=== PATIENT | female | born 1980 | race Caucasian/White ===

== ENCOUNTER 2020-07-13 08:00 | Outpatient (CLI) | payer OTHER, SELFPAY ==
[2020-07-13 12:56] LABS: Hematocrit 36.2 % (37.0-47.0); Hemoglobin 12.2 g/dL (12.0-15.0); Mean Corpuscular HGB Conc 33.7 g/dl (32-36); Mean Corpuscular Volume 88.9 fl (80-100); Platelet Count Result 228 k/mm3 (150-375); Red Blood Count 4.07 M/mm3 (4.2-5.4); Red Cell Distribution Width 13.9 % (11.5-14.5); White Blood Count 9.9 K/mm3 (4.5-10.0)
[2020-07-14 08:18] LABS: Rapid Plasma Reagin Non-Reactive (NonReactive)
== END 2020-07-13 08:01 ==
LOC: ANHLAB 03-02 09:13
PROVIDERS: Visit Provider Obstetrics & Gynecology
DX: Z34.93 Encounter for supervision of normal pregnancy, unspecified, third trimester (principal); Z3A.00 Weeks of gestation of pregnancy not specified
CPT/HCPCS: 36415; 85027; 86592; 86850; 86900; 86901

== ENCOUNTER 2020-07-14 08:23 | Inpatient (IN) | payer OTHER, SELFPAY ==
--- NOTE | 2020-07-11 11:53 | PM.IMHP ---
H&P: HPI History of Present Illness Date/Time: 07/11/20 11:53 Chief complaint: Prior Narrative: Fouzia Vital is a 40 year old female 5 para [id number] whose last menstrual period was 10/09/2019, EDC is 07/15/2020, presents at term for repeat section. She has had an unremarkable course. She is admitted for repeat section. Her previous sections were reviewed general anesthetic due to her lidocaine severe allergy. Her has been uncomplicated. Review of Systems Review of Systems: All systems reviewed & are unremarkable except as noted in HPI and below PMFSH Family History Family History Father COPD (chronic obstructive pulmonary disease) Sibling Asthma Mother Thyroid cancer Social History Social History Substance use: current Gender identity (if verbalized by the patient): Female Spiritual care concerns: No Meds Home Medications and Allergies Home Medications Medication Instructions Recorded Confirmed Type bupropion HCl [Wellbutrin XL] 150 mg PO QAM 06/22/20 06/22/20 History buspirone [BuSpar] 10 mg PO BID 06/22/20 06/22/20 History docosahexaenoic acid [DHA ] 200 mg PO 06/22/20 History Allergies Allergy/AdvReac Type Severity Reaction Status Date / Time lidocaine Allergy Severe Swelling Verified 04/02/19 14:40 Exam Const: General: no acute distress Eyes: General: appearance normal, both eyes and all related structures Neck: Neck: supple and no JVD Thyroid: thyroid normal Resp: Effort & Inspection: normal respiratory effort Auscultation: clear to auscultation bilaterally Cardio: Rate: regular rate Rhythm: regular rhythm GI: Inspection: non-distended GI Palp: Yes Soft to palpation, No Tenderness to palpation present (GI) and No Guarding due to palpation present (GI) Auscultation: normal bowel sounds : External Female Exam: normal external appearance Speculum Exam - Vagina: normal appearance of the vagina Speculum Exam - Cervix: normal appearance of the cervix Bimanual exam- vagina & uterus: non-tender ( Gravid soft uterus) Skin: General skin exam: no rashes or lesions noted Extrem: General: normal to inspection and no edema Psych: Mental Status: mental status grossly normal Affect: normal affect Assessment and Plan Additional Plan impression: Term with previous section Plan: Repeat low-transverse section
[2020-07-14] VITALS (50 sets, daily range): BP systolic 115–139; BP diastolic 62–97; PULSE 60–198; RESP 14–20; TEMP 36.1–36.9; O2SAT 95–100; BMI 34.8
--- NOTE | 2020-07-14 06:31 | WPDHPUPDATE1 ---
History and Physical Update Update Date/Time: 07/14/20 06:31 History and Physical has been reviewed, including an updated exam of the patient. There are NO changes in the patient's condition. Risks, benefits, and alternatives have been discussed and questions answered. Patient agrees to proceed with procedure.
[2020-07-14] MEDS: LACTATED RINGERS 1,000 ML 125 ML IV CONT ×2 (09:04→10:38)
--- NOTE | 2020-07-14 09:24 | LDADM ---
This patient, Fouzia Vital, was admitted to Labor/Delivery/Recovery 120 on 07/14/20 at 08:23. Plans for labor, pain management and were discussed with patient. Patient/family oriented to hospital policies and general routines including ID bracelet, bed and alarms, visiting hours, pain management, procedures, bathroom and other care routines, personal items, smoking policy, room service/diet and guest tray routines, security routines, and visiting hours. Patient/Family are encouraged to report perceived risks to care and to ask questions if they do not understand what they are told or what they should do. See OBIX for further documentation.
--- NOTE | 2020-07-14 12:39 | P.PNAN_ITS ---
Anes - Initial Pre Proc Eval Procedure: Operation Date: 07/14/20 13:30 Proposed Procedures p Repeat Section - Anthony Edgar MD Date/Time: 07/14/20 12:39 Surgeon: Anthony Edgar MD Pre Op Diagnosis: Patient Data Age: 40 Gender: F Height: 1.68 m Weight: 98 kg Last Vital Signs Temp 36.2 C L 07/14/20 11:00 Pulse 77 07/14/20 10:15 BP 132/81 07/14/20 10:15 Allergies Allergy/AdvReac Type Severity Reaction Status Date / Time lidocaine Allergy Severe Swelling Verified 04/02/19 14:40 Home Medications Medication Instructions Recorded Confirmed Type bupropion HCl [Wellbutrin XL] 150 mg PO QAM 06/22/20 07/14/20 History buspirone [BuSpar] 10 mg PO BID 06/22/20 07/14/20 History docosahexaenoic acid [ DHA] 200 mg PO DAILY 06/22/20 07/14/20 History hydrocodone-acetaminophen [[place]] 1 tablet PO Q4H PRN #30 tablet 07/14/20 Rx hydrocodone-acetaminophen [[place]] 1 tablet PO Q4H PRN #30 tablet 07/14/20 Rx Patient hx anesthesia problems: none Family hx anesthesia problems: none PMFSH Family History Family History Father COPD (chronic obstructive pulmonary disease) Sibling Asthma Mother Thyroid cancer Social History Social History Smoking status: Former smoker Second hand tobacco smoke exposure: No Substance use: current Gender identity (if verbalized by the patient): Female Spiritual care concerns: No Anes - Eval Final PreProcedure Day of Procedure 07/14/20 12:39 Patient weight: obese Heart: regular rate and rhythm Lungs: clear to auscultation and normal air movement Airway: Mallampati scale class II Neurological: alert and oriented Last oral intake: >/= 8 hours ASA classification: II Emergent: no Anesthetic plan: proceed Anesthesia type and monitoring: general ETT and standard monitoring Informed Consent: The patient's anesthetic plan and its attendant risks and benefits were discussed with the patient/family/POA. Questions were solicited and answers provided to the satisfaction of the patient/family/POA.
[2020-07-14] MEDS: ceFAZolin 2 GM/D5W 50 ML 2 GM/50 ML BAG IVPB (12:57)
--- NOTE | 2020-07-14 13:38 | PM.PROC ---
Procedure Note - Detailed Date of procedure: 07/14/20 Pre-op diagnosis: Surgeon: Anthony Edgar MD Postop diagnosis: Term previous section Procedure: Repeat low-transverse section Anesthesia: General endotracheal EBL: 535cc Findings: Female 7 lb 3 oz with Apgars of 9 and 9 at 1 and 5 minutes respectively Complications: None Description of procedure the patient was prepped and draped in the normal sterile fashion placed in the supine position. Secondary to her lidocaine allergy she underwent induction of general anesthetic. A Pfannenstiel incision was made progress her layers to the fascia. The fascia was incised upward outward fashion bilaterally. The underlying muscles were sharply dissected. Parietal peritoneum L by Linette clamps number sharp dissection carried superiorly. The. This carried then inferiorly to the dome of bladder. Bladder blade of was placed bladder flap was formed bladder blade returned. Low-transverse incision made in the head delivered in the BASSAM position. Anterior posterior shoulder delivered spontaneously. Cord clamped x2 and cut and infant passed off the table given Apgars of 9 [id number] 9 [id number]. Cord blood was drawn placenta then delivered intact manually. Uterus delivered from the abdomen after moist towel. After assuring no membranes or debris remained in the uterus, the uterus was closed with continuous running 0 Vicryl from lateral edge to lateral edge followed by a 2nd imbricating running locking 0 Vicryl from lateral edge to lateral edge. Hemostasis was assured. The ovaries and tubes appeared within normal limits in the uterus returned to the abdomen. The uterine incision inspected 1 last time noted be hemostatic. Laps removed and accounted for. The fascia was closed with continuous running 0 Vicryl from lateral edge to midline bilaterally. Irrigation undertaken the subcutaneous layer. The skin closed with 4 O Monocryl and glue. All sponge, needle, instrument counts were correct. There were no immediate complications
[2020-07-14] MEDS: MORPHINE SULFATE (*CRX) 2 MG/ML INJ IV PUSH ×3 (14:06→14:59)
[2020-07-14] MEDS: OXYTOCIN 30 UNITS/NS 500 ML 30 UNITS/500 ML BAG 125 UNITS IV CONT (14:08)
[2020-07-14] MEDS: KETOROLAC 30 MG/ML VIAL (*BKC) IV PUSH (15:24)
--- NOTE | 2020-07-14 16:07 | OBPPTRN ---
Patient transferred to post room # 292 via stretcher. Support person present. Oriented to unit, room, information board, rooming in, admission packet and security measures. Patient verbalizes understanding.
[2020-07-14] MEDS: MORPHINE SULFATE PCA (*CRX) 30 MG/30 ML SYR IV CONT (16:21)
[2020-07-14] MEDS: buPROPion HCL XL (24 HR) 150 MG TABCR PO (17:52)
[2020-07-14] MEDS: busPIRone HCL 10 MG TABLET PO (17:52)
[2020-07-14] MEDS: DEXTROSE 5%/0.45% SOD CHL 1,000 ML 125 ML (17:55)
[2020-07-15 03:48] VITALS: BP 114/71; PULSE 67; RESP 16; TEMP 36.2; O2SAT 99
[2020-07-15] MEDS: HYDROcodone/acetaminophen (*CRX) 10-325 MG TABLET 1 TAB PO ×4 (04:39→16:13)
[2020-07-15] MEDS: IBUPROFEN 600 MG TABLET PO ×3 (04:39→19:29)
[2020-07-15 05:01] LABS: Basophils Percent Auto 0.2 % (0.2-1.2); Eosinophils Absolute Auto 0.1 K/mm3 (0-0.3); Eosinophils Percent Auto 0.7 % (0-4.4); Hematocrit 31.3 % (37.0-47.0); Hemoglobin 10.4 g/dL (12.0-15.0); Immature Granulocyte Absolute 0.04 K/mm3 (0.00-0.031); Immature Granulocyte Percent A 0.4 % (0-0.5); Lymphocytes Absolute Auto 1.39 K/mm3 (0.9-3.2); Lymphocytes Percent Auto 14.2 % (18.3-44.2); Mean Corpuscular HGB Conc 33.2 g/dl (32-36); Mean Corpuscular Hemoglobin 29.8 pg (26-34); Mean Corpuscular Volume 89.7 fl (80-100); Mean Platelet Volume 11.1 fl (7.4-10.4); Monocytes Absolute Auto 0.7 K/mm3 (0.1-0.6); Monocytes Percent Auto 6.9 % (2.6-8.5); Neutrophils Absolute Auto 7.6 K/mm3 (1.3-6.7); Neutrophils Percent Auto 77.6 % (45.5-73.1); Platelet Count Result 185 k/mm3 (150-375); Red Blood Count 3.49 M/mm3 (4.2-5.4); Red Cell Distribution Width 14.1 % (11.5-14.5); White Blood Count 9.8 K/mm3 (4.5-10.0)
[2020-07-15 05:33] VITALS: BP 134/79; PULSE 79; RESP 18; TEMP 36.7; O2SAT 97
[2020-07-15 07:30] VITALS: BP 137/78; PULSE 78; RESP 18; TEMP 36.7
[2020-07-15] MEDS: buPROPion HCL XL (24 HR) 150 MG TABCR PO (07:30)
[2020-07-15] MEDS: DOCUSATE SODIUM 100 MG CAPSULE PO ×2 (07:30→16:13)
[2020-07-15] MEDS: busPIRone HCL 10 MG TABLET PO ×2 (07:30→19:29)
[2020-07-15] MEDS: SIMETHICONE 80 MG TAB.CHEW PO ×2 (07:38→16:14)
[2020-07-15] MEDS: ONDANSETRON INJ 4 MG/2 ML VIAL IV PUSH (07:38)
--- NOTE | 2020-07-15 08:01 | PM.OBPNVD ---
OB - PN: Subj Subjective Date/time seen: 07/15/20 08:01 Interval history: Patient doing well this AM. she has ambulated out of bed. She is tolerating PO. She reports adequate pain control. Her bleeding is normal and she reports normal lochia. She denies fever, chills, N/V. She has not yet passed flatus. Patient comments: no complaints and pain well controlled; no flatus present OB - PN: Obj Data Labs CBC & Chem 7: 07/15/20 04:47 Labs: Laboratory Results - last 24 hr 07/15/20 04:47 WBC 9.8 RBC 3.49 L Hgb 10.4 L Hct 31.3 L MCV 89.7 MCH 29.8 MCHC 33.2 RDW 14.1 Plt Count 185 MPV 11.1 H Immature Gran % (Auto) 0.4 Neut % (Auto) 77.6 H Lymph % (Auto) 14.2 L [place] % (Auto) 6.9 Eos % (Auto) 0.7 Baso % (Auto) 0.2 Lymph # (Auto) 1.39 [place] # (Auto) 0.7 H Eos # (Auto) 0.1 Baso # (Auto) 0.0 Abs Immat Gran (auto) 0.04 H Absolute Neuts (auto) 7.6 H Absolute Nucleated RBC 0.0 Nucleated RBC % 0.0 OB - PN A/P Plan day: 1 Plan: routine care Comments: patient doing well this AM s/p jacobson, voiding spontaneously tolerating PO H/H 06/24 continue routine PP care Time Spent With Patient Time: Total time spent is greater than 50% in coordination of care (as documented) at patient's floor/unit and/or counseling patient: Time with patient: less than 15 minutes Review of Systems Constitutional: Constitutional: Reports no additional constitutional complaints Cardiovascular: Cardiovascular: Reports no additional cardiovascular complaints Respiratory: Respiratory: Reports no additional respiratory complaints Gastrointestinal: Gastrointestinal: Reports no additional gastrointestinal complaints Genitourinary: Genitourinary: Reports no additional female genitourinary complaints Exam Const: General: comfortable and no acute distress Resp: Effort & Inspection: normal respiratory effort Auscultation: clear to auscultation bilaterally Cardio: Rate: regular rate GI: GI Palp: Yes Soft to palpation and Yes Tenderness to palpation present (GI) (appropriately tender around incision ) Auscultation: normal bowel sounds Other: fundus firm and below umbilicus Incision C/D/I Urinary Catheter: Urinary Catheter: urine clear Psych: Appearance: grossly normal Mental Status: mental status grossly normal Affect: normal affect
[2020-07-15] MEDS: FAMOTIDINE 20 MG TABLET PO ×2 (09:23→19:29)
--- NOTE | 2020-07-15 15:00 | PC.NURSE ---
PT introductions made and plan of care discussed per post op c section, pain management, breast feeding, daily care activities. PT verbalized understanding of such care.
[2020-07-15] MEDS: HYDROcodone/acetaminophen (*CRX) 5-325 MG TABLET 1 TAB PO (19:28)
[2020-07-15 19:57] VITALS: BP 142/79; PULSE 84; RESP 16; TEMP 36.1; O2SAT 100
[2020-07-16] MEDS: HYDROcodone/acetaminophen (*CRX) 5-325 MG TABLET 1 TAB PO ×2 (02:49→09:59)
[2020-07-16] MEDS: IBUPROFEN 600 MG TABLET PO ×2 (02:49→10:00)
--- NOTE | 2020-07-16 07:48 | P.DS_ITS ---
DS: Admitting Diagnosis Admitting Diagnosis Admitting Diagnosis: OB - DS: Summary OB Procedures : None OB Procedures Intrapartum: OB Procedures: : None Peripartum Data Delivery Method: Section Procedures: Procedures Operation Date: 07/14/20 13:30 Actual Procedures Side Surgeon p Section nAthony Edgar MD complications: none Status at Discharge Functional status at discharge: independent ambulation Overall status at discharge: patient is progressing back to baseline Time Spent with Patient Time attestation: Total time spent providing and/or coordinating discharge services: Time spent: Less than 30 minutes Exam Const: General: comfortable and no acute distress Resp: Effort & Inspection: normal respiratory effort Auscultation: clear to auscultation bilaterally Cardio: Rate: regular rate GI: Inspection: non-distended GI Palp: Yes Soft to palpation, No Firmness to palpation present (GI), Yes Tenderness to palpation present (GI) (mild tenderness over incision ) and No Guarding due to palpation present (GI) Auscultation: normal bowel sounds Psych: Appearance: grossly normal Mental Status: mental status grossly normal Discharge Plan Discharge Attending physician on discharge: Anthony Edgar Discharging Clinician: Antohny Edgar Patient Disposition: Home, Self-Care Activity: may shower, no straining, may drive after 2 weeks and pelvic rest Diet: heart healthy Wound Care Instructions: follow printed instructions Discharge Instructions: call or return for temperature >100.4, bleeding >2 pads/hr for 2 hrs, pain not controlled with medications, signs/symptoms of mastitis Patient Instructions: (DC), Antibiotic Form Stand Alone Forms: General Discharge Information Follow-up/Referrals: Anthony Edgar MD [Physician] - Discharge Medications: New hydrocodone-acetaminophen [[place]] 5-325 mg tablet 1 tablet PO Q4H PRN (Reason: pain) Qty: 30 RF: 0 hydrocodone-acetaminophen [[place]] 5-325 mg tablet 1 tablet PO Q4H PRN (Reason: pain) Qty: 30 RF: 0 No Action buspirone [BuSpar] 10 mg Tablet 10 mg PO BID RF: 0 bupropion HCl [Wellbutrin XL] 150 mg Tablet Extended Release 24 Hr 150 mg PO QAM RF: 0 DHA 200 mg Capsule 200 mg PO DAILY RF: 0 Date of admission: 07/14/20 08:23 Primary Care Provider: PHYSICIAN,HAND CEMENTER Admitting Provider: Anthony Edgar Attending physician on admission: Anthony Edgar Condition: Stable
--- NOTE | 2020-07-16 09:57 | WPDANESPN ---
Anes - Prog Note Post-Op Date/Time: 07/16/20 09:57 Cardiovascular status: normal Respiratory status: normal Airway patency: baseline Mental status: baseline Post-Op hydration status: normal Vital Signs: Last Vital Signs Temp 36.1 C L 07/15/20 19:57 Pulse 84 07/15/20 19:57 Resp 16 07/15/20 19:57 BP 142/79 H 07/15/20 19:57 Pulse Ox 100 07/15/20 19:57 Pain Score (VAS): 0 Laboratory Tests 07/15/20 04:47 Post-procedural complaints: pruritis (mild, itchy nose) Patient Feedback: Patient satisfied with anesthetic care.
[2020-07-16] MEDS: SIMETHICONE 80 MG TAB.CHEW PO (09:58)
[2020-07-16] MEDS: buPROPion HCL XL (24 HR) 150 MG TABCR PO (09:59)
[2020-07-16] MEDS: DOCUSATE SODIUM 100 MG CAPSULE PO (09:59)
[2020-07-16] MEDS: busPIRone HCL 10 MG TABLET PO (09:59)
[2020-07-16] MEDS: MULTIVIT/MIN/PREN/FOL AC/IRON TABLET 1 TAB PO (09:59)
[2020-07-16] MEDS: POLYSACCHARIDE IRON COMPLEX 150 MG CAPSULE PO (09:59)
[2020-07-16] MEDS: FAMOTIDINE 20 MG TABLET PO (09:59)
[2020-07-16 10:00] VITALS: BP 110/79; PULSE 93; RESP 18; TEMP 36.8; O2SAT 99
--- NOTE | 2020-07-16 11:55 | PC.NURSE ---
PT discharged to home ambulatory accompanied by spouse and and taken to waiting car. follow up appts confirmed
--- NOTE | 2020-07-16 13:34 | PC.NURSE ---
Addendum entered by Martir Servin RN 07/16/20 13:35: actual time of discharge teaching was 1100 Original Note: PT received discharge instructions per protocol and verbalized understanding of such care.
[2020-07-19 11:19] VITALS: BP 151/82; RESP 16; TEMP 37.3; O2SAT 99
== END 2020-07-16 11:55 | disposition home or self-care (01) | DRG 540 ==
LOC: ANHLDR 08:33 → ANHOB2 07-16 07:49 → ANHLDR 07-18 10:23 → ANHOB2 07-18 10:23
PROVIDERS: Admitting Provider Obstetrics & Gynecology; Visit Provider Student in an Organized Health Care Education/Training Program
PROC: 10D00Z1 Extraction of Products of Conception, Low, Open Approach (ICD-10-PCS; CPT 59514; principal; 2020-07-14 13:30)
DX: O34.211 Maternal care for low transverse scar from previous cesarean delivery (principal); Z37.0 Single live birth; Z3A.39 39 weeks gestation of pregnancy; O99.214 Obesity complicating childbirth; E66.9 Obesity, unspecified; O99.893 Other specified diseases and conditions complicating puerperium; L29.9 Pruritus, unspecified; O77.0 Labor and delivery complicated by meconium in amniotic fluid
CPT/HCPCS: 36415; 85025; A9270; J0131; J0330; J0690; J1885; J2270; J2405; J2590; J2704; J3010; J7120

== ENCOUNTER 2021-03-19 19:20 | Emergency (ER) | payer OTHER, SELFPAY ==
[2021-03-19 20:41] VITALS: BP 134/70; PULSE 86; RESP 14; TEMP 37; O2SAT 100
[2021-03-19 21:09] LABS: Basophils Percent Auto 0.4 % (0.2-1.2); Eosinophils Absolute Auto 0.2 K/mm3 (0-0.3); Eosinophils Percent Auto 2.2 % (0-4.4); Hematocrit 34.2 % (37.0-47.0); Hemoglobin 11.4 g/dL (12.0-15.0); Immature Granulocyte Absolute 0.04 K/mm3 (0.00-0.031); Immature Granulocyte Percent A 0.4 % (0-0.5); Lymphocytes Percent Auto 20.3 % (18.3-44.2); Mean Corpuscular HGB Conc 33.3 g/dl (32-36); Mean Corpuscular Hemoglobin 28.5 pg (26-34); Mean Corpuscular Volume 85.5 fl (80-100); Mean Platelet Volume 10.8 fl (7.4-10.4); Monocytes Absolute Auto 0.5 K/mm3 (0.1-0.6); Monocytes Percent Auto 5.2 % (2.6-8.5); Neutrophils Percent Auto 71.5 % (45.5-73.1); Platelet Count Result 198 k/mm3 (150-375); Red Cell Distribution Width 13.9 % (11.5-14.5); White Blood Count 9.8 K/mm3 (4.5-10.0)
[2021-03-19 21:18] LABS: Anion Gap 10 mmol/L (8-16); Blood Urea Nitrogen 10 mg/dL (7-17); Calcium 9.2 mg/dL (8.4-10.2); Carbon Dioxide 23 mmol/L (22-30); Chloride 106 mmol/L (98-107); Estimated CRCL calculation 150 ml/min; Estimated Glomerular Filt Rate > 60; Glucose 104 mg/dL (65-110); Potassium 3.7 mmol/L (3.4-5.0); Sodium 139 mmol/L (137-145)
[2021-03-19 21:24] LABS: D Dimer 3.18 ug/mL (<0.48)
--- NOTE | 2021-03-19 21:43 | ED.EXTPRO ---
HPI - Extremity Problem General Chief complaint: Extremity Problem,Nontraumatic Stated complaint: L calf cramp x 3 days Time Seen by Provider: 03/19/21 21:43 Source: patient Mode of arrival: ambulatory Limitations: no limitations History of Present Illness HPI Narrative: Patient is a 41-year-old female, G6, P5, currently 11 weeks who presents for evaluation of left calf pain. Patient states she noticed onset of calf pain 3 days ago. Pain is sharp in nature in the upper left calf which extends into the lower calf. Patient states that first he attributed this to a charley horse. No associated redness or swelling. No recent car or air travel. No history of Covid. No known history of coagulopathy. Patient states other pregnancies have been uncomplicated. She denies abdominal pain, pelvic cramping, urinary symptoms, loss of fluids or bleeding. No fever, chills, chest pain or shortness of breath. Patient's CREDIT ASSISTANT is Dr. Augusto Carballo. Patient is a former smoker. Related Data Home Medications Medication Instructions Recorded Confirmed DHA 200 mg PO DAILY 06/22/20 07/14/20 bupropion HCl [Wellbutrin XL] 150 mg PO QAM 06/22/20 07/14/20 buspirone 10 mg PO BID 06/22/20 07/14/20 Allergies Allergy/AdvReac Type Severity Reaction Status Date / Time lidocaine Allergy Severe Swelling Verified 04/02/19 14:40 Review of Systems Review of Systems: Narrative: CONSTITUTIONAL: Denies fever, chills, or sweats. CARDIOVASCULAR: Denies chest pain, palpitations, or edema. RESPIRATORY: Denies cough or dyspnea. GASTROINTESTINAL: Denies abdominal pain, nausea, vomiting, or diarrhea. GENITOURINARY: Denies dysuria or hematuria. No vaginal bleeding or discharge. No pelvic cramping. SKIN: Denies rash or itching. MUSCULOSKELETAL: Denies back pain, joint pain,, reports left calf pain NEUROLOGIC: Denies headache, numbness, or weakness. [facility] Family History Family History Father COPD (chronic obstructive pulmonary disease) Sibling Asthma Mother Thyroid cancer Social History Social History Smoking status: Former smoker Second hand tobacco smoke exposure: No Substance use: current Gender identity (if verbalized by the patient): Female Spiritual care concerns: No Exam Narrative: Exam Narrative: GENERAL: Awake, alert, conversant HEAD: Normocephalic, atraumatic. EYES: PERRLA and EOMI. ENT: Nares clear, no rhinorrhea or epistaxis. Mucous membranes moist. NECK: Supple. CHEST: No respiratory distress, breathing even and non labored HEART: Regular rate, sinus rhythm ABDOMEN:Non distended, non tender EXTREMITIES: Normal range of motion. No significant edema. No erythema. Left calf tenderness with palpation. No right calf tenderness. No streaking erythema. SKIN: Warm, dry, no rash. NEURO:No focal deficits. Alert and oriented x3 Course Vital Signs Vital signs: Vital Signs Temperature 37.0 C 03/19/21 20:41 Pulse Rate 86 03/19/21 20:41 Respiratory Rate 14 03/19/21 20:41 Blood Pressure 134/70 03/19/21 20:41 Pulse Oximetry 100 03/19/21 20:41 Temperature 37.0 C 03/19/21 20:41 Pulse Rate 86 03/19/21 20:41 Respiratory Rate 14 03/19/21 20:41 Blood Pressure 134/70 03/19/21 20:41 Pulse Oximetry 100 03/19/21 20:41 MDM - Extremity (Nontraumatic) MDM Narrative Medical decision making narrative: Patient presenting for evaluation of left calf pain in early . Differential includes muscle cramp versus DVT. D-dimer is elevated which can be normal in the setting of , but due to risk factors, will give a prophylactic dose of Lovenox, will obtain DVT ultrasound first thing tomorrow morning. Patient is not having any type symptoms of vaginal bleeding, loss of fluids, cramping. No urinary symptoms. No sign of injury, no known trauma to warrant x-ray imagin
[2021-03-19] MEDS: ENOXAPARIN 100 MG/ML SYRINGE SUB-Q (22:19)
== END 2021-03-19 22:24 | disposition home or self-care (01) ==
PROVIDERS: Emergency Medicine; Emergency Provider Emergency Medicine; PCP Family Medicine
DX: O26.892 Other specified pregnancy related conditions, second trimester (principal); M79.662 Pain in left lower leg; R79.1 Abnormal coagulation profile; Z87.891 Personal history of nicotine dependence; Z3A.11 11 weeks gestation of pregnancy
CPT/HCPCS: 36415; 80048; 85025; 85380; 96372; 99283; J1650

== ENCOUNTER 2021-03-20 07:11 | Outpatient (CLI) | payer OTHER, SELFPAY ==
--- NOTE | ~2021-03-20 | US_ITS ---
EXAMINATION: US venous doppler LE LT EXAM DATE: 03/20/2021 07:49 INDICATION: LT calf pain LT CALF PAIN TECHNIQUE: Multiple grayscale, color flow and Doppler images of the left lower extremity deep venous system obtained and reviewed. There is no prior study for comparison. FINDINGS: LEFT SIDE Common femoral: -------- Normal. Profunda femoral: ------- Normal. Femoral: Normal. Popliteal: Thrombosed. Posterior tibial: ---------Thrombosed. Peroneal: Thrombosed. Gastrocnemius: Not visualized. Soleus: Thrombosed. Greater saphenous: ----- Normal. Lesser saphenous: ------ Not visualized. IMPRESSION: 1. Positive for left popliteal and calf DVT. Reviewed, dictated and finalized at location B.
== END 2021-03-20 07:12 | disposition home or self-care (01) ==
PROVIDERS: PCP Obstetrics & Gynecology; Visit Provider Obstetrics & Gynecology
DX: I82.432 Acute embolism and thrombosis of left popliteal vein (principal)
CPT/HCPCS: 93971

== ENCOUNTER 2021-08-22 09:19 | Outpatient (CLI) | payer OTHER, SELFPAY ==
[2021-08-22] MEDS: TETANUS,DIPHTHERIA,AC PERTUSSIS ADULT (0.5 ML) BOOSTRIX IM (10:48)
== END 2021-08-22 09:20 | disposition home or self-care (01) ==
PROVIDERS: PCP Obstetrics & Gynecology; Visit Provider Obstetrics & Gynecology
DX: Z23 Encounter for immunization (principal); Z34.80 Encounter for supervision of other normal pregnancy, unspecified trimester
CPT/HCPCS: 59025; 90715

== ENCOUNTER 2021-10-03 09:32 | Outpatient (RCR) | payer OTHER, SELFPAY ==
[2021-08-22 11:11] VITALS: BP 124/87; PULSE 80
[2021-08-29 14:29] VITALS: BP 127/74; PULSE 94
[2021-09-05 10:51] VITALS: BP 126/66; PULSE 84
[2021-09-12 14:35] VITALS: BP 132/74
[2021-09-19 11:03] VITALS: BP 126/82; PULSE 95
[2021-09-19 11:17] VITALS: BP 139/79
--- NOTE | ~2021-10-03 | US_ITS ---
EXAMINATION: US OB follow up w BPP DATE: 09/19/2021 10:39 INDICATION: Small for gestational age. TECHNIQUE: Real-time pelvic ultrasound was performed. COMPARISON: None. FINDINGS: There is a single living fetus in vertex presentation. The placenta is posterior. heart rate i s 132 beats per minute (bpm). The amniotic fluid index is 7.6 cm, which is normal. The following biometric data were obtained: Biparietal diameter (BPD): 8.9 cm; head circumference (HC): 32.4 cm; abdominal circumference (AC): 33 .0 cm; femur length (FL): 6.9 cm. These measurements are concordant. Estimated weight is 2918 g +/- 438 g, which correlates with the 39th percentile when 10/10/21 is used as estimated date of delivery. As single measurements, these parameters are each equal to the following estimated gestational ages w ith ranges of +/- 2 standard deviations: BPD: 35 weeks 5 days (32 weeks 5 days - 38 weeks 6 days). HC: 36 weeks 4 days (33 weeks 6 days - 39 weeks 2 days). AC: 37 weeks 0 days (33 weeks 6 days - 40 weeks 0 days). FL: 35 weeks 2 days (32 weeks 2 days - 38 weeks 2 days). estimated gestational age based solely on measurements from this exam is 36 weeks 1 days +/- 2 weeks 4 days. Biophysical profile performed by the technologist: breathing (30 sec sustained breathing in 30 minutes): 2 out of 2 movement (3 gross body movements in 30 minutes): 2 out of 2 tone (one episode of [id number]-[id number]-[id number] limb movement): 2 out of 2 Amniotic fluid pocket (2 cm): 2 out of 2 Total score: 8 out of 8 IMPRESSION: 1. Single living fetus in vertex presentation. 2. Estimated weight is 2918 g +/- 438 g, which correlates with the 39th percentile when 2 is used as estimated date of delivery. 3. Biophysical profile 8 out of 8. Reviewed, dictated and finalized at location A. [employer]ANG[employer]AGE [employer] IMPRESSION: 1. Single living fetus in vertex presentation. 2. Estimated weight is 2918 g +/- 438 g, which correlates with the 39th percentile when 10/10/21 is used as estimated date of delivery. 3. Biophysical profile 8 out of 8.
[2021-10-03 10:08] VITALS: BP 119/66; PULSE 86
== END 2021-11-20 23:59 | disposition home or self-care (01) ==
LOC: ANHOBOP 09:32
PROVIDERS: PCP Obstetrics & Gynecology; Visit Provider Obstetrics & Gynecology
DX: O36.5930 Maternal care for other known or suspected poor fetal growth, third trimester, not applicable or unspecified (principal); Z3A.33 33 weeks gestation of pregnancy; Z3A.34 34 weeks gestation of pregnancy; Z3A.35 35 weeks gestation of pregnancy; Z3A.36 36 weeks gestation of pregnancy; Z3A.37 37 weeks gestation of pregnancy; Z3A.39 39 weeks gestation of pregnancy
CPT/HCPCS: 59025; 76816; 76819; J2250; J3010

== ENCOUNTER 2021-10-08 10:36 | Outpatient (CLI) | payer OTHER, SELFPAY ==
[2021-10-08 11:25] LABS: Hematocrit 33.8 % (37.0-47.0); Hemoglobin 11.4 g/dL (12.0-15.0); Mean Corpuscular HGB Conc 33.7 g/dl (32-36); Mean Corpuscular Hemoglobin 30.2 pg (26-34); Mean Corpuscular Volume 89.4 fl (80-100); Mean Platelet Volume 10.2 fl (7.4-10.4); Platelet Count Result 223 k/mm3 (150-375); Red Blood Count 3.78 M/mm3 (4.2-5.4); Red Cell Distribution Width 14.7 % (11.5-14.5); White Blood Count 8.8 K/mm3 (4.5-10.0)
[2021-10-10 05:56] LABS: Rapid Plasma Reagin Non-Reactive (NonReactive)
== END 2021-10-08 10:37 | disposition home or self-care (01) ==
PROVIDERS: PCP Family Medicine; Visit Provider Obstetrics & Gynecology
DX: Z01.818 Encounter for other preprocedural examination (principal)
CPT/HCPCS: 36415; 85027; 86592; 86850; 86900; 86901

== ENCOUNTER 2021-10-09 05:49 | Inpatient (IN) | payer OTHER, SELFPAY ==
--- NOTE | 2021-09-12 14:43 | PC.NURSE ---
verified with OR schedule and patient --C/S with tubal ligation on 10/09/21 at 0730 Patient given requisition for lab draw on 10/08/21
--- NOTE | 2021-10-08 15:18 | PM.IMHP ---
H&P: HPI History of Present Illness Date/Time: 10/08/21 15:18 41-year-old 6 para 5 for repeat section tubal ligation term. Last menstrual period of 512, EDC is 10/10 21 presenting at 3967 weeks gestation. She had an acute DVT in February been Lovenox. She stopped that 2 weeks ago and went to heparin. Stop the heparin within 24hours prior to admission. The has been complicated by an abnormal NIPT and she was referred to Maternal Medicine with reports of normal chromosomes on amniocentesis. The baby is small but testing has been reassuring. She understands this to be a permanent irreversible procedure is far as the tubal goes Chief Complaint: Repeat section and tubal ligation Review of Systems Review of Systems: All systems reviewed & are unremarkable except as noted in HPI and below PMFSH Family History Family History Father COPD (chronic obstructive pulmonary disease) Sibling Asthma Mother Thyroid cancer Grandparent Heart disease Cancer Prostate carcinoma Borderline diabetes Social History Social History Smoking status: Former smoker Second hand tobacco smoke exposure: No Substance use: never Gender identity (if verbalized by the patient): Female Spiritual care concerns: No Meds Home Medications and Allergies Home Medications Medication Instructions Recorded Confirmed Type DHA 200 mg PO DAILY 06/22/20 07/14/20 History bupropion HCl [Wellbutrin XL] 150 mg PO QAM 06/22/20 07/14/20 History buspirone 10 mg PO BID 06/22/20 07/14/20 History enoxaparin [Lovenox] 100 mg SUBCUT DAILY 09/12/21 09/12/21 History Allergies Allergy/AdvReac Type Severity Reaction Status Date / Time lidocaine Allergy Severe Swelling Verified 04/02/19 14:40 Exam Const: General: no acute distress Eyes: General: appearance normal, both eyes and all related structures Neck: Neck: supple and no JVD Thyroid: thyroid normal Resp: Effort & Inspection: normal respiratory effort Auscultation: clear to auscultation bilaterally Cardio: Rate: regular rate Rhythm: regular rhythm GI: Inspection: non-distended GI Palp: Yes Soft to palpation, No Tenderness to palpation present (GI) and No Guarding due to palpation present (GI) Auscultation: normal bowel sounds : External Female Exam: normal external appearance Speculum Exam - Vagina: normal appearance of the vagina Speculum Exam - Cervix: normal appearance of the cervix Bimanual exam- vagina & uterus: enlarged (Uterus is gravid and soft) Skin: General skin exam: no rashes or lesions noted Extrem: General: normal to inspection and no edema Psych: Mental Status: mental status grossly normal Affect: normal affect Assessment and Plan Additional Plan Impression: Term with previous section and desires permanent sterilization. History of DVT. Plan: Repeat low-transverse section and tubal ligation. She required Lovenox for 6 weeks
[2021-10-09] VITALS (46 sets, daily range): BP systolic 104–139; BP diastolic 53–91; PULSE 52–85; RESP 11–18; TEMP 36.3–36.9; O2SAT 98–100; BMI 33.0
[2021-10-09] MEDS: LACTATED RINGERS 1,000 ML 125 ML IV CONT (06:18)
--- NOTE | 2021-10-09 06:20 | LDADM ---
This patient, Fouzia Vital, was admitted to Labor/Delivery/Recovery 120 on 10/09/21 at 05:49. Plans for labor, pain management and were discussed with patient. Patient/family oriented to hospital policies and general routines including ID bracelet, bed and alarms, visiting hours, pain management, procedures, bathroom and other care routines, personal items, smoking policy, room service/diet and guest tray routines, security routines, and visiting hours. Patient/Family are encouraged to report perceived risks to care and to ask questions if they do not understand what they are told or what they should do. See OBIX for further documentation.
--- NOTE | 2021-10-09 06:43 | P.PNAN_ITS ---
Anes - Initial Pre Proc Eval Procedure: Operation Date: 10/09/21 07:30 Proposed Procedures p Repeat Section with Tubal Ligation - Anthony Edgar MD Date/Time: 10/09/21 06:43 Surgeon: Anthony Edgar MD Pre Op Diagnosis: Repeat C/S Patient Data Age: 41 Gender: F Height: 1.68 m Weight: 93 kg Last Vital Signs Pulse 84 10/09/21 06:32 BP 130/77 10/09/21 06:32 Allergies Allergy/AdvReac Type Severity Reaction Status Date / Time lidocaine Allergy Severe Swelling Verified 04/02/19 14:40 Home Medications Medication Instructions Recorded Confirmed Type DHA 200 mg PO DAILY 06/22/20 10/09/21 History bupropion HCl [Wellbutrin XL] 150 mg PO QAM 06/22/20 10/09/21 History buspirone 10 mg PO BID 06/22/20 10/09/21 History Patient hx anesthesia problems: none Family hx anesthesia problems: none Results Review: All pre-operative results and documents have been reviewed as part of the pre-operative evaluation. [facility] Past Medical History Medical History (Updated 10/09/21 @ 06:45 by Anthony Garcia MD) Adjustment disorder Anxiety Claustrophobia DVT (deep venous thrombosis) Surgical History Surgical History (Updated 10/09/21 @ 06:45 by Anthony Garcia MD) H/O adenoidectomy History of section Family History Family History Father COPD (chronic obstructive pulmonary disease) Sibling Asthma Mother Thyroid cancer Grandparent Heart disease Cancer Prostate carcinoma Borderline diabetes Social History Social History Years smoked: 20 Smoking status: Former smoker Tobacco type: cigarettes Second hand tobacco smoke exposure: No Smoking end date: 04/09/18 Substance use: never Gender identity (if verbalized by the patient): Female Spiritual care concerns: No Anes - Eval Final PreProcedure Day of Procedure 10/09/21 06:43 Patient weight: obese Heart: regular rate and rhythm Lungs: clear to auscultation Airway: Mallampati scale class II and special considerations poor dentition Last oral intake: >/= 8 hours ASA classification: III Emergent: no Anesthetic plan: proceed Anesthesia type and monitoring: general ETT and standard monitoring Results Review: All pre-operative results and documents have been reviewed as part of the pre-operative evaluation. Informed Consent: The patient's anesthetic plan and its attendant risks and benefits were discussed with the patient/family/POA. Questions were solicited and answers provided to the satisfaction of the patient/family/POA.
--- NOTE | 2021-10-09 07:08 | WPDHPUPDATE1 ---
History and Physical Update Update Date/Time: 10/09/21 07:08 History and Physical has been reviewed, including an updated exam of the patient. There are NO changes in the patient's condition. Risks, benefits, and alternatives have been discussed and questions answered. Patient agrees to proceed with procedure.
[2021-10-09] MEDS: ceFAZolin 2 GM/D5W 50 ML 2 GM/50 ML BAG IVPB (07:30)
--- NOTE | 2021-10-09 08:13 | W.PM.PROC2 ---
Procedure Note - Detailed Date of Procedure 10/09/21 Pre-op Diagnosis Repeat C/S/desires sterilization Post-op Diagnosis same Procedure Performed Repeat low-transverse section and bilateral tubal ligation via modified Rajwinder method Surgeon Anthony Edgar MD Anesthesia general Indications This is a 41-year-old female at term who desires permanent sterilization with several previous C-sections Findings Female 6lb 7oz with Apgars 8 and 9 at 1 and 5minutes respectively Description of Procedure The patient is prepped draped in normal fashion placed in supine position. Under excellent spinal general anesthetic the abdomen was entered in Pfannenstiel fashion progressive layers to fascia was incised in upward outward fashion removed laterally the parietal peritoneum elevated clamped and by sharp dissection carried superiorly and inferiorly dome of bladder. Bladder blade placed bladder flap formed bladder blade returned low-transverse incision made the head delivered in the BASSAM position anterior posterior shoulder delivered spontaneously after repeat number leaving a loose nuchal cord infant passed off the table given Apgars of 8 [id number] cord blood was drawn placenta intact manually uterus delivered on the abdomen wrapped in moist towel. After assuring no membranes or debris remained in the uterus, the uterus was closed with continuous running locking 0 Vicryl from lateral edge to lateral edge followed by 2nd imbricating running locking 0 Vicryl from lateral edge to lateral edge. Hemostasis was assured attention turned to the tubal ligation. The right fallopian tube was grasped at its midportion a good knuckle of tube free tied with 0 chromic the distal and proximal portions were then free tied with 0 chromic in the portion between incised with Metzenbaum scissors and passed off the table marked portion right fallopian tube. Hemostasis was assured in like fashion the left fallopian tube was grasped in its midportion a good knuckle of tube free tied with 0 chromic the the peritoneum between pierced and the distal and proximal legs were free tied with 0 chromic the portion between cut passed off the table and marked portion of left fallopian tube. Hemostasis was assured. The uterine incision inspected 1 last time noted be hemostatic. The uterus returned the abdomen and all laps removed and accounted for. The fascia closed with continuous running 0 Vicryl from lateral edge to midline bilaterally. Irrigation subcutaneous layer and the skin closed with 4 Monocryl and glue blood loss was 400cc by QBL. All sponge, needle, instrument counts were correct. There were no immediate complications Estimated Blood Loss 400 Drains No Packing No Pathology yes (Bilateral portion of fallopian tubes) Complications No immediate complications Condition stable Disposition PACU
[2021-10-09] MEDS: OXYTOCIN 30 UNITS/NS 500 ML 30 UNITS/500 ML BAG 125 UNITS IV CONT (08:33)
[2021-10-09] MEDS: fentaNYL CITRATE INJ (*CRX) 100 MCG/2 ML VIAL 25 MCG IV PUSH ×2 (08:37→09:13)
[2021-10-09] MEDS: MORPHINE SULFATE PCA (*CRX) 30 MG/30 ML SYR IV CONT (09:35)
--- NOTE | 2021-10-09 10:50 | PC.NURSE ---
Patient transferred to post room #[id number] per stretcher. Support person present. Oriented to unit, room, information board, rooming in, admission packet and security measures. Patient verbalizes understanding.
[2021-10-09] MEDS: DEXTROSE 5%/0.45% SOD CHL 1,000 ML 125 ML IV CONT (12:54)
--- NOTE | 2021-10-09 13:23 | PC.NURSE ---
1200 - Introductions were made and mother led the discussion of her desires and plans to feeding her baby. Reviewed my CLC pending certification at this time. Reviewed handwashing to prevent infection before and after taking care of her baby. Mother verbalizes she is able to independently latch . Discussed how to watch for early feeding cues, place infant skin to skin, then feeding baby when infant is ready or every 2-3 hours. Mother demonstrated her . Reviewed positioning/alignment with the use of the mom and baby guide for optimal latching. Encouraged mother with infant left breast in cross cradle position using nipple to nose with asymmetrical 140-degree latch. She denies any nipple discomfort. Reviewed there is to be no pain with , how to detach from the breast, visuals to watch for to confirm effective . Detached after visual assessment of latch less than 130 degrees and break in the cheek line. Nipple was slightly misshaped and reviewed optimal latching with mother using visual teaching tool and handout. Nipple tenderness is relieved with improving positioning and effective latching. Use of warm, wet compress to nipples and air dry for improved comfort. Infant was able to maintain effective latch. Mother has verbalized understanding watching for feeding cues for responsive feeding 8-12 times in 24 hours, how to stimulate infant to initiate feeding if it has been 3 hours since the last feeding, to call for assistance if there's no latch or discomfort with latching. Reported to primary RN.
--- NOTE | 2021-10-09 14:28 | PC.NURSE ---
1410 - 1425 Consulted with patient and mother has latched effectively with no pain but is insecure with regards to position and latch to the right breast using cradle hold. Detached infant and assessed the nipple and there was no misshape. Reviewed positioning/alignment, holding breast and asymmetrical latch on. was able to latch correctly with appropriate rocking motion with good suck/swallow ratios. Infant nursed eagerly, with steady draws and occasional swallowing. Reviewed signs of a correct latch, effective nursing and suck swallow ratio. was able to maintain latch without discomfort to mother. Nipple care reviewed. Instructed mother to call out for RN assistance if she is unable to latch for feeding or she has discomfort with nursing. Reviewed responsive feeding to be initiated with feeding cues or three hours from start of last feeding. Mother voiced understanding of information shared. Reported to primary RN.
[2021-10-09] MEDS: KETOROLAC 30 MG/ML VIAL (*BKC) IV PUSH (16:57)
[2021-10-09] MEDS: SIMETHICONE 80 MG TAB.CHEW PO ×2 (16:58→23:34)
[2021-10-09] MEDS: LANOLIN (LANSINOH) 7.5 GM CREAM 1 APPLIC TOPICAL (16:58)
[2021-10-09] MEDS: DOCUSATE SODIUM 100 MG CAPSULE PO (18:56)
[2021-10-09] MEDS: ENOXAPARIN 40 MG/0.4 ML SYRINGE SUB-Q (20:22)
[2021-10-09] MEDS: HYDROcodone/acetaminophen (*CRX) 10-325 MG TABLET 1 TAB PO ×2 (20:23→23:34)
[2021-10-09] MEDS: IBUPROFEN 600 MG TABLET PO (23:34)
[2021-10-10] MEDS: HYDROcodone/acetaminophen (*CRX) 10-325 MG TABLET 1 TAB PO (02:40)
[2021-10-10 03:00] VITALS: BP 124/68; PULSE 81; RESP 16; TEMP 37; O2SAT 100
[2021-10-10 05:02] LABS: Basophils Absolute Auto 0.1 K/mm3 (0.0-0.1); Basophils Percent Auto 0.7 % (0.2-1.2); Eosinophils Absolute Auto 0.1 K/mm3 (0-0.3); Eosinophils Percent Auto 0.7 % (0-4.4); Hematocrit 31.5 % (37.0-47.0); Immature Granulocyte Absolute 0.06 K/mm3 (0.00-0.031); Immature Granulocyte Percent A 0.5 % (0-0.5); Lymphocytes Absolute Auto 1.67 K/mm3 (0.9-3.2); Lymphocytes Percent Auto 14.2 % (18.3-44.2); Mean Corpuscular HGB Conc 31.7 g/dl (32-36); Mean Corpuscular Volume 94.6 fl (80-100); Mean Platelet Volume 11.2 fl (7.4-10.4); Monocytes Absolute Auto 0.8 K/mm3 (0.1-0.6); Monocytes Percent Auto 6.5 % (2.6-8.5); Neutrophils Absolute Auto 9.1 K/mm3 (1.3-6.7); Neutrophils Percent Auto 77.4 % (45.5-73.1); Platelet Count Result 209 k/mm3 (150-375); Red Blood Count 3.33 M/mm3 (4.2-5.4); Red Cell Distribution Width 14.8 % (11.5-14.5); White Blood Count 11.8 K/mm3 (4.5-10.0)
[2021-10-10] MEDS: HYDROcodone/acetaminophen (*CRX) 5-325 MG TABLET 1 TAB PO ×5 (05:43→22:13)
[2021-10-10] MEDS: IBUPROFEN 600 MG TABLET PO ×3 (05:43→22:13)
[2021-10-10] MEDS: SIMETHICONE 80 MG TAB.CHEW PO ×4 (06:42→22:13)
[2021-10-10] MEDS: DOCUSATE SODIUM 100 MG CAPSULE PO ×2 (06:43→16:04)
[2021-10-10] MEDS: MULTIVIT/MIN/PREN/FOL AC/IRON TABLET 1 TAB PO (06:43)
--- NOTE | 2021-10-10 06:45 | PC.NURSE ---
PT introductions made and plan of care discussed per post op c section, pain management, breast feeding, daily care activities. PT sole recipient of such instructions and no barriers to learning noted. PT received instructions per one to one discussion, mom baby care guide book and demonstrations this shift. PT verbalized understanding of such care.
[2021-10-10 07:00] VITALS: BP 124/67; PULSE 75; RESP 16; TEMP 35.8; O2SAT 99
--- NOTE | 2021-10-10 07:59 | P.PNAN_ITS ---
Anes - Prog Note Post-Op Date/Time: 10/10/21 07:59 Cardiovascular status: normal Respiratory status: normal Airway patency: baseline Mental status: baseline Post-Op hydration status: normal Vital Signs: Last Vital Signs Temp 37.0 C 10/10/21 03:00 Pulse 81 10/10/21 03:00 Resp 16 10/10/21 03:00 BP 124/68 10/10/21 03:00 Pulse Ox 100 10/10/21 03:00 Pain Score (VAS): 09/03 I/O: Intake & Output 10/09/21 10/09/21 10/10/21 15:59 23:59 07:59 Intake Total 300 2524 Output Total 383 1200 600 Balance -83 1324 -600 Laboratory Tests 10/10/21 03:24 10/10/21 03:24 WBC 11.8 H RBC 3.33 L Hgb 10.0 L Hct 31.5 L MCV 94.6 D MCH 30.0 MCHC 31.7 L RDW 14.8 H Plt Count 209 MPV 11.2 H Immature Gran % (Auto) 0.5 Neut % (Auto) 77.4 H Lymph % (Auto) 14.2 L [place] % (Auto) 6.5 Eos % (Auto) 0.7 Baso % (Auto) 0.7 Lymph # (Auto) 1.67 [place] # (Auto) 0.8 H Eos # (Auto) 0.1 Baso # (Auto) 0.1 Abs Immat Gran (auto) 0.06 H Absolute Neuts (auto) 9.1 H Absolute Nucleated RBC 0.0 Nucleated RBC % 0.0 Post-procedural complaints: none Patient Feedback: Patient satisfied with anesthetic care.
--- NOTE | 2021-10-10 08:42 | PM.OBPNVD ---
OB - PN: Subj Subjective Date/time seen: 10/10/21 08:42 Narrative: Pain OK. Tolerating diet. OB - PN: Obj Data Labs CBC & Chem 7: 10/10/21 03:24 Labs: Laboratory Results - last 24 hr 10/10/21 03:24 WBC 11.8 H RBC 3.33 L Hgb 10.0 L Hct 31.5 L MCV 94.6 D MCH 30.0 MCHC 31.7 L RDW 14.8 H Plt Count 209 MPV 11.2 H Immature Gran % (Auto) 0.5 Neut % (Auto) 77.4 H Lymph % (Auto) 14.2 L [place] % (Auto) 6.5 Eos % (Auto) 0.7 Baso % (Auto) 0.7 Lymph # (Auto) 1.67 [place] # (Auto) 0.8 H Eos # (Auto) 0.1 Baso # (Auto) 0.1 Abs Immat Gran (auto) 0.06 H Absolute Neuts (auto) 9.1 H Absolute Nucleated RBC 0.0 Nucleated RBC % 0.0 OB - PN A/P Plan Comments: A: POD#1, doing well. P: Routine care. Exam Narrative: AVSS I/O OK ABD soft, nontender, fundus firm. Incision c/d/i. EXT nontender
--- NOTE | 2021-10-10 10:51 | PC.NURSE ---
4271 -Consulted with patient and mother led conversation of how is going so far. Infant is not in the room at this time. RN suggested mother to call for assistance when is back with her showing feeding cues, if the baby doesn't latch or there's discomfort with feeding. 1010- 1050 Consulted with patient per request related to infant not latching. Reviewed infant feeding cues, frequencies, duration of feedings, feeding elimination flow sheet, signs of adequate intake and. Mother is holding baby to breast in the cradle position. Reviewed positioning/alignment, holding breast and asymmetrical latch on mother states she is familiar and is getting frustrated that it has been over 5 hours and infant has not eaten. Infant was unable to latch. Infant opens with wide gape but doesn't suck. RN assessed sucking with a gloved finger. Infant bites down on the finger, pauses, bites again, then after a few more second begins to suck. RN suggest attempting with a football position that was discussed yesterday to be considered due to how her breast hangs to the side. Mother adamantly refuses to attempt football position for fear of smothering her baby. Reviewed signs of a correct latch, leading with the chin, optimal latch and suck swallow ratio. Infant opens with wipe gape but doesn't suck. Mom is frustrated and threatening infant with a bottle. It has been 6 hours since baby has breastfed, mother is complaining of discomfort with positioning. RN will check infant's blood sugar and reassess mother's desires and plans to feed baby. Blood sugar is 63 and reviewed results with primary RN and mother. Mother decides she wants to feed baby a formula bottle because she is tired and needs sleep. Mother proceeded to bottle feed. Instructed mother to call out for RN assistance if she is unable to latch infant for feeding or she has discomfort with nursing. Mother voiced understanding that feeding to be initiated three hours from start of last feeding or if feeding cues are noted before. Mother voiced understanding of information shared. Reported to primary RN.
[2021-10-10 19:10] VITALS: BP 125/75; PULSE 74; RESP 16; TEMP 36.9; O2SAT 100
[2021-10-10] MEDS: ENOXAPARIN 40 MG/0.4 ML SYRINGE SUB-Q (21:03)
[2021-10-11] MEDS: SIMETHICONE 80 MG TAB.CHEW PO ×6 (01:18→20:56)
[2021-10-11] MEDS: HYDROcodone/acetaminophen (*CRX) 5-325 MG TABLET 1 TAB PO ×7 (01:18→20:56)
[2021-10-11] MEDS: IBUPROFEN 600 MG TABLET PO ×3 (04:18→20:56)
[2021-10-11 07:20] VITALS: BP 125/76; PULSE 89; RESP 16; TEMP 36.6; O2SAT 99
[2021-10-11] MEDS: MULTIVIT/MIN/PREN/FOL AC/IRON TABLET 1 TAB PO (07:47)
[2021-10-11] MEDS: buPROPion HCL XL (24 HR) 150 MG TABCR PO (07:47)
[2021-10-11] MEDS: DOCUSATE SODIUM 100 MG CAPSULE PO ×2 (07:47→14:52)
--- NOTE | 2021-10-11 08:18 | PM.OBPNVD ---
OB - PN: Subj Subjective Date/time seen: 10/11/21 08:18 Narrative: Pain OK. Tolerating diet. OB - PN: Obj Data Labs CBC & Chem 7: 10/10/21 03:24 OB - PN A/P Plan Comments: A: POD#2, doing well. P: Routine care. Probably home tomorrow. Exam Narrative: AVSS I/O OK ABD soft, nontender, fundus firm. Incision c/d/i. EXT nontender
--- NOTE | 2021-10-11 09:46 | PC.NURSE ---
Patient viewed the discharge video Mother & Baby Care, The First Two Weeks . Patient was given the opportunity and encouraged to ask questions. Patient verbalized understanding of information shared and has been given the mother/baby guide for home reference.
[2021-10-11] MEDS: ENOXAPARIN 40 MG/0.4 ML SYRINGE SUB-Q (20:55)
[2021-10-11 21:00] VITALS: BP 136/84; PULSE 84; RESP 18; TEMP 36.1; O2SAT 100
[2021-10-12] MEDS: HYDROcodone/acetaminophen (*CRX) 5-325 MG TABLET 1 TAB PO ×4 (00:09→11:51)
[2021-10-12] MEDS: IBUPROFEN 600 MG TABLET PO ×2 (03:00→08:40)
[2021-10-12] MEDS: SIMETHICONE 80 MG TAB.CHEW PO ×3 (03:00→11:51)
--- NOTE | 2021-10-12 07:09 | PC.NURSE ---
/ 1030 - Consulted with pt to evaluate mother's perspective on how has been going so far. Mother demonstrated placing to the right breast with football positioning. Reviewed and shifted infant to optimal position. was able to maintain effective latch, suck/swallowing 2:1 and 3:1 with good rocking motion and mother denies any discomfort. Mother voiced understanding to call for assistance if there's no latch, assistance with optimal latching or discomfort with latching. Reported to primary RN.
--- NOTE | 2021-10-12 08:27 | PC.NURSE ---
0800 - Baby is swaddled in the bassinet sleeping. Mother states she has been dozing on/off. Reviewed stimulating to . Mother discusses nipple tenderness. Reviewed optimal latching, positioning and warm,wet compress rinsing along with air drying for comfort and healing. Discussed good hand washing when handling breast/nipples and her baby. Primary RN is taking to the nursery for MD assessment.
[2021-10-12] MEDS: DOCUSATE SODIUM 100 MG CAPSULE PO (08:40)
[2021-10-12] MEDS: MULTIVIT/MIN/PREN/FOL AC/IRON TABLET 1 TAB PO (08:41)
[2021-10-12] MEDS: buPROPion HCL XL (24 HR) 150 MG TABCR PO (08:41)
[2021-10-12 08:59] VITALS: BP 137/68; PULSE 75; RESP 18; TEMP 36.6; O2SAT 100
--- NOTE | 2021-10-12 12:22 | PM.OBDSVD ---
DS: Admitting Diagnosis Discharge Date 10/12/21 Admitting Diagnosis intrauterine at term h/o DVT prior request for permanent sterilization OB - DS: Summary OB Procedures : None OB Procedures Intrapartum: OB Procedures: : None Peripartum Data Delivery Method: Section Procedures: Procedures Operation Date: 10/09/21 07:30 Actual Procedure Side Surgeon p Section Anthony Edgar MD complications: none Status at Discharge Functional status at discharge: independent ambulation Overall status at discharge: patient is progressing back to baseline Time Spent with Patient Time attestation: Total time spent providing and/or coordinating discharge services: Time spent: Less than 30 minutes Exam Const: General: comfortable and no acute distress Resp: Effort & Inspection: normal respiratory effort Auscultation: clear to auscultation bilaterally Cardio: Rate: regular rate GI: Inspection: non-distended GI Palp: Yes Soft to palpation, No Firmness to palpation present (GI), Yes Tenderness to palpation present (GI) (mild tenderness over incision ) and No Guarding due to palpation present (GI) Auscultation: normal bowel sounds Psych: Appearance: grossly normal Mental Status: mental status grossly normal DS: Data Data Completed and Pending Completed studies during hospitalization: Pending at discharge 10/09/21 08:00 Surgical [PTH] Routine Discharge Plan Discharge Attending physician on discharge: Anthony Edgar Discharging Clinician: Anthony Edgar Patient Disposition: Home, Self-Care Activity: may shower, no straining, may drive after 2 weeks and pelvic rest Diet: heart healthy Wound Care Instructions: follow printed instructions Patient Instructions: Antibiotic Form Stand Alone Forms: General Discharge Information Follow-up/Referrals: Anthony Edgar MD [Physician] - Discharge Medications: New hydrocodone-acetaminophen 5-325 mg tablet 1 tablet PO Q4H PRN (Reason: pain) Qty: 30 RF: 0 enoxaparin [Lovenox] 40 mg/0.4 mL syringe 40 mg subcut DAILY Qty: 12 RF: 0 ibuprofen 600 mg Tablet 600 mg PO Q6H PRN (Reason: Cramping) Qty: 30 RF: 0 Continued buspirone 10 mg Tablet 10 mg PO BID RF: 0 bupropion HCl [Wellbutrin XL] 150 mg Tablet Extended Release 24 Hr 150 mg PO QAM RF: 0 DHA 200 mg Capsule 200 mg PO DAILY RF: 0 Date of admission: 10/09/21 05:49 Primary Care Provider: Mc,Neha Concepcion Admitting Provider: Anthony Edgar Attending physician on admission: Anthony Edgar Condition: Stable
[2021-10-13 11:37] VITALS: BP 136/75; PULSE 91; RESP 20; TEMP 37.1; O2SAT 100
== END 2021-10-12 14:17 | disposition home or self-care (01) | DRG 540 ==
LOC: ANHLDR 07:10 → ANHOB2 10-12 12:23 → ANHLDR 10-15 07:43 → ANHOB2 10-15 07:43
PROVIDERS: Admitting Provider Obstetrics & Gynecology; PCP Family Medicine; Visit Provider Student in an Organized Health Care Education/Training Program
PROC: 10D00Z1 Extraction of Products of Conception, Low, Open Approach (ICD-10-PCS; CPT 59514; principal; 2021-10-09 07:30)
DX: O34.211 Maternal care for low transverse scar from previous cesarean delivery (principal); Z37.0 Single live birth; Z3A.39 39 weeks gestation of pregnancy; O69.81X0 Labor and delivery complicated by cord around neck, without compression, not applicable or unspecified; Z30.2 Encounter for sterilization
CPT/HCPCS: 36415; 85025; 88302; A9270; J0131; J0330; J0690; J1650; J1885; J2270; J2405; J2590; J2704; J3010; J7120

== ENCOUNTER 2022-01-22 14:58 | Emergency (ER) | payer OTHER, SELFPAY ==
[2022-01-22 15:10] VITALS: BP 144/88; PULSE 72; RESP 16; TEMP 36.3; O2SAT 100
--- NOTE | 2022-01-22 15:21 | ED.URI ---
HPI - URI/Sore Throat General Chief Complaint: Upper Respiratory Infection Stated Complaint: uri Time Seen by Provider: 01/22/22 15:22 Source: patient, family, RN notes reviewed and old records reviewed Mode of arrival: ambulatory Limitations: no limitations History of Present Illness HPI Narrative: 41-year-old female presents to the [facility] with complaints of last 2 weeks, 3 days of left ear pain, pressure. Denies any chest pain or abdominal pain. Denies fevers. No treatment prior to arrival Related Data Home Medications Medication Instructions Recorded Confirmed bupropion HCl 150 mg 24 hr tablet, 150 mg PO QAM 06/22/20 01/22/22 extended release (Wellbutrin XL) docosahexaenoic acid 200 mg 200 mg PO DAILY 06/22/20 01/22/22 capsule ( DHA) buspirone 15 mg tablet 1 tablet PO DAILY 01/22/22 01/22/22 sertraline 50 mg tablet 75 mg PO DAILY 01/22/22 01/22/22 Allergies Allergy/AdvReac Type Severity Reaction Status Date / Time lidocaine Allergy Severe Swelling Verified 01/22/22 15:22 Review of Systems Review of Systems: All systems reviewed & are unremarkable except as noted in HPI and below Constitutional: Constitutional: Reports no additional constitutional complaints, Denies chills, Denies fever(s) and Denies headache(s) Eyes: Eyes: Reports no additional eye complaints ENT: Reports as per HPI, Denies vertigo, Denies dizziness, Denies headache(s), Reports nasal congestion and Denies sore throat Comments: Left ear pressure Cardiovascular: Cardiovascular: Reports no additional cardiovascular complaints, Denies chest pain, Denies syncope, Denies rapid heart rate and Denies dyspnea Respiratory: Respiratory: Reports no additional respiratory complaints, Denies cough, Denies dyspnea and Denies wheezing Gastrointestinal: Gastrointestinal: Reports no additional gastrointestinal complaints, Denies abdominal pain, Denies diarrhea, Denies nausea and Denies vomiting Musculoskeletal: Musculoskeletal: Reports no additional musculoskeletal complaints and Denies numbness Integumentary/Breasts: Skin/Breast: Reports system reviewed and no additional complaints, except as docu Neurologic: Reports system reviewed and no additional complaints, except as documented, Denies vertigo, Denies dizziness, Denies syncope, Denies headache(s), Denies focal weakness and Denies numbness Psychiatric: Psychiatric: Reports no additional psychiatric complaints Allergic/Immunologic: Allergic/Immunologic: Reports no additional allergic/immunologic complaints and Denies wheezing PMFSH Past Medical History Medical History (Updated 01/22/22 @ 15:38 by Heide Jamison APRN) Adjustment disorder Anxiety Claustrophobia DVT (deep venous thrombosis) Surgical History Surgical History H/O adenoidectomy History of section Family History Family History Father COPD (chronic obstructive pulmonary disease) Sibling Asthma Mother Thyroid cancer Grandparent Heart disease Cancer Prostate carcinoma Borderline diabetes Social History Social History Years smoked: 20 Smoking status: Former smoker Tobacco type: cigarettes Second hand tobacco smoke exposure: No Smoking end date: 04/09/18 Substance use: never Gender identity (if verbalized by the patient): Female Spiritual care concerns: No Comments At the time of my signature, I reviewed and agree with the nursing past medical, surgical, social, and family history. There is no relevant family history pertinent to the patient complaint. Exam Const: General: cooperative, healthy appearing, no acute distress, well developed and alert Nutritional Appearance: well nourished Orientation/consciousness: patient oriented x3 Limitations: no limitations HENMT: Head: normal to inspection Ears: external
== END 2022-01-22 15:45 | disposition home or self-care (01) ==
PROVIDERS: Emergency Provider Nurse Practitioner
DX: H66.92 Otitis media, unspecified, left ear (principal); Z87.891 Personal history of nicotine dependence; Z86.718 Personal history of other venous thrombosis and embolism; F41.9 Anxiety disorder, unspecified; F43.20 Adjustment disorder, unspecified; F40.240 Claustrophobia
CPT/HCPCS: 99213; G0463

== ENCOUNTER 2023-05-07 08:49 | Outpatient (CLI) | payer OTHER, SELFPAY ==
--- NOTE | 2023-05-07 09:00 | ECG_ITS ---
Measurements Intervals [place] Rate: 68 P: 3 IN: 162 QRS: 3 QRSD: 92 T: -4 QT: 395 QTc: 420 Interpretive Statements SINUS RHYTHM INCOMPLETE RIGHT BUNDLE BRANCH BLOCK DELAYED PRECORDIAL R/S TRANSITION CONSIDER INFERIOR INFARCT, AGE INDETERMINATE BORDERLINE T WAVE ABNORMALITY- ANTEROLATERAL LEADS BASELINE ARTIFACT- II, III, AVR, AVL, AVF, V5 ABNORMAL ECG NO PREVIOUS ECG AVAILABLE FOR COMPARISON Electronically Signed On 05-07-2023 9:27:52 CDT by Marvin Arreola D.O.
[2023-05-07 09:49] LABS: Basophils Absolute Auto 0.1 K/mm3 (0.0-0.1); Basophils Percent Auto 0.8 % (0.2-1.2); Eosinophils Absolute Auto 0.1 K/mm3 (0-0.3); Hematocrit 37.1 % (37.0-47.0); Hemoglobin 11.9 g/dL (12.0-15.0); Immature Granulocyte Absolute 0.02 K/mm3 (0.00-0.031); Immature Granulocyte Percent A 0.3 % (0-0.5); Lymphocytes Absolute Auto 1.62 K/mm3 (0.9-3.2); Lymphocytes Percent Auto 27.4 % (18.3-44.2); Mean Corpuscular HGB Conc 32.1 g/dl (32-36); Mean Corpuscular Hemoglobin 27.9 pg (26-34); Mean Corpuscular Volume 86.9 fl (80-100); Mean Platelet Volume 11.1 fl (7.4-10.4); Monocytes Absolute Auto 0.3 K/mm3 (0.1-0.6); Monocytes Percent Auto 5.8 % (2.6-8.5); Neutrophils Absolute Auto 3.8 K/mm3 (1.3-6.7); Neutrophils Percent Auto 63.7 % (45.5-73.1); Platelet Count Result 237 k/mm3 (150-375); Red Blood Count 4.27 M/mm3 (4.2-5.4); Red Cell Distribution Width 13.6 % (11.5-14.5); White Blood Count 5.9 K/mm3 (4.5-10.0)
== END 2023-05-07 08:50 | disposition home or self-care (01) ==
LOC: ANHSURGERY 08:53
PROVIDERS: Visit Provider Obstetrics & Gynecology
DX: Z01.818 Encounter for other preprocedural examination (principal); N81.4 Uterovaginal prolapse, unspecified; I45.10 Unspecified right bundle-branch block; R94.31 Abnormal electrocardiogram [ECG] [EKG]; F17.200 Nicotine dependence, unspecified, uncomplicated
CPT/HCPCS: 36415; 85025; 86850; 86900; 86901; 93005

== ENCOUNTER 2023-05-09 00:17 | Day surgery (SDC) | payer OTHER, SELFPAY ==
[2023-05-05 13:31] VITALS: BMI 35.6
--- NOTE | 2023-05-05 13:39 | PC.NURSE ---
Report to the Outpatient Waiting Room, entrance under the green pavilion located off [facility], at time 0930__ on date _05/09/23_. Planned Procedure Time: _1130_. Time changes happen often and if your time is changed the preop area will call you the afternoon before. - You and your visitor will be asked to self-screen and do not enter if you have any COVID symptoms. - A mask is optional within the hospital at this time. Patients may have clear liquids (water, carbonated beverages, clear teas, apple juice) until 3 hours prior to surgery with a maximum of 20 ounces. - No food from midnight until time of surgery - Infants may have breast milk until 4 hours before surgery, infant formula 6 hours prior to surgery. - Children will be allowed to drink immediately following surgery. If applicable, please bring a bottle or sippy cup to assist with drinking. Juice, water, soda, and popsicles are readily available. For infants on formula, please bring formula the day of surgery. Pacifiers are allowed. Take the following medications with a SIP of water the morning of surgery: __BUPROPION, BUSPIRONE, SETRALINE DO NOT STOP ANY OF YOUR OTHER PRESCRIPTION MEDICATIONS PRIOR TO SURGERY ?EXCEPT THE FOLLOWING Medications to discontinue per physician VITYAMINS / SUPPLIMENTS Date to take last dose 05/06/23 Please no make-up, nail portuguese, hairspray, perfume, deodorant, or body powder the day of surgery. No jewelry (including any body piercings) or valuables the day of surgery, leave them at home. Please take a shower or bath the night before, or the morning of, surgery with an antibacterial soap. Wear comfortable, loose fitting clothing. Children are encouraged to wear pajamas. - Jewelry must be removed prior to entering the operating room. Rings and piercings that are not removed may be cut off. - The hospital will not accept responsibility for valuables. - Please leave all valuables, including medications, at home the day of surgery. If you are going home after surgery, a licensed tanker driver must drive you home. - NO public transportation without another adult if you receive anesthesia. - We recommend that an adult stay with you for 24 hours following discharge. - We also recommend that you do not drive, make important decision, drink alcoholic beverages, or take any drugs that were not prescribed by your health care provider for at least 24 hours after your discharge time. For Pediatric surgeries, we recommend two adults accompany the child home. Follow any additional instructions given to you from your surgeon. If you or anyone in your household have experienced Covid symptoms in the past week, please notify your surgeon or the nurse liaison at the phone number below for possible testing. Telephone instructions given to _PATIENT_and asked if any additional questions and then verbalized understanding. Patient advised to call surgeon office or pre surgery nurse liaison [phone] if any additional questions.
--- NOTE | 2023-05-06 16:21 | PM.IMHP ---
H&P: HPI History of Present Illness Date/Time: 05/06/23 16:21 Chief Complaint: Pelvic pain with dyspareunia and dysmenorrhea and uterine prolapse Narrative: Is a 43-year-old female admitted for robotic total vaginal hysterectomy and bilateral salpingectomy secondary to uterine prolapse pelvic pain and irregular bleeding. Patients at any pregnancies and has severe uterine prolapse and pain. She is admitted for robotic hysterectomy and bilateral salpingectomy. Risks and benefits reviewed including not exclusive of , aspiration pneumonia, bleeding, transfusion, perforation injury to bowel, bladder, ureters, or other internal organs with need for laparotomy. She received the [employer] handout entitled hysterectomy as well as de [place] handout. She had all questions answered to her satisfaction. She asked to proceed PMFSH Past Medical History Medical History Adjustment disorder Anxiety Claustrophobia DVT (deep venous thrombosis) Surgical History Surgical History H/O adenoidectomy History of section Family History Family History Father COPD (chronic obstructive pulmonary disease) Sibling Asthma Mother Thyroid cancer Grandparent Heart disease Cancer Prostate carcinoma Borderline diabetes Social History Social History Smoking packs per day: 2 Smoking cigarettes per day: 40.0 Years smoked: 25 Smoking pack-years: 50.00 Smoking status: Former smoker Tobacco type: cigarettes Second hand tobacco smoke exposure: No Smoking end date: 04/09/18 Additional smoking assessment comments: VAPED FOR 3 YRS, QUIT DECEMBER 2019 Alcohol intake: former Substance use: former Substance use type: marijuana Other substance usage details: 7 YRS AGO LAST USE Living arrangements: with family Gender identity (if verbalized by the patient): Female Spiritual care concerns: No Meds Home Medications and Allergies Home Medications Medication Instructions Recorded Confirmed Type bupropion HCl 150 mg 24 hr tablet, 150 mg PO QAM 06/22/20 05/05/23 History extended release (Wellbutrin XL) docosahexaenoic acid 200 mg 200 mg PO DAILY 06/22/20 05/05/23 History capsule ( DHA) buspirone 15 mg tablet 1 tablet PO TID 01/22/22 05/05/23 History sertraline 50 mg tablet 100 mg PO DAILY 01/22/22 05/05/23 History calcium 100 mg capsule 100 mg PO DAILY 05/05/23 05/05/23 History cholecalciferol (vitamin D3) 25 25 mcg PO DAILY 05/05/23 05/05/23 History mcg (1,000 unit) capsule (Vitamin D3) Allergies Allergy/AdvReac Type Severity Reaction Status Date / Time lidocaine Allergy Severe Swelling Verified 05/05/23 13:29 Exam Const: General: cooperative, healthy appearing, comfortable and overweight Orientation/consciousness: oriented to person, oriented to place and oriented to time HENMT: Head: normal to inspection Resp: Effort & Inspection: normal respiratory effort Cardio: Rate: regular rate Rhythm: regular rhythm Heart sounds: S1 normal heart sound present and S2 normal heart sound present GI: Inspection: normal to inspection GI Palp: Yes abdominal tenderness : External Female Exam: normal external appearance Speculum Exam - Vagina: normal appearance of the vagina Speculum Exam - Cervix: normal appearance of the cervix (Second-degree prolonged present) Bimanual exam- vagina & uterus: enlarged Bimanual Exam- Adnexa, other: normal adnexae Assessment and Plan Assessment and plan (1) Uterine prolapse: Code(s): N81.4 - Uterovaginal prolapse, unspecified Status: Acute (2) Pelvic pain: Code(s): R10.2 - Pelvic and perineal pain Status: Acute (3) Excessive vaginal bleeding: Code(s): N93.9 - Abnormal uterine and vagina
[2023-05-09] VITALS (10 sets, daily range): BP systolic 112–134; BP diastolic 58–75; PULSE 57–85; RESP 14–20; TEMP 36.2–36.7; O2SAT 74–100
--- NOTE | 2023-05-09 06:50 | WPDHPUPDATE1 ---
History and Physical Update Update Date/Time: 05/09/23 06:50 History and Physical has been reviewed, including an updated exam of the patient. There are NO changes in the patient's condition. Risks, benefits, and alternatives have been discussed and questions answered. Patient agrees to proceed with procedure.
[2023-05-09] MEDS: ACETAMINOPHEN 500 MG TABLET 1000 MG PO (10:27)
--- NOTE | 2023-05-09 10:45 | WPDANESEPPF ---
Anes - Initial Pre Proc Eval Procedure: Operation Date: 05/09/23 11:30 Proposed Procedures p Robotic Assisted Total Vaginal Hysterectomy with Bilateral Salpingectomy - Anthony Carballo MD Date/Time: 05/09/23 10:45 Surgeon: Anthony Carballo MD Pre Op Diagnosis: Uterine Prolapse, Pelvic Pain, Irrg Bleeding Patient Data Age: 43 Gender: F Height: 1.68 m Weight: 100 kg Allergies Allergy/AdvReac Type Severity Reaction Status Date / Time lidocaine Allergy Severe Swelling Verified 05/09/23 09:58 Home Medications Medication Instructions Recorded Confirmed Type bupropion HCl 150 mg 24 hr tablet, 150 mg PO QAM 06/22/20 05/05/23 History extended release (Wellbutrin XL) docosahexaenoic acid 200 mg 200 mg PO DAILY 06/22/20 05/05/23 History capsule ( DHA) buspirone 15 mg tablet 1 tablet PO TID 01/22/22 05/05/23 History sertraline 50 mg tablet 100 mg PO DAILY 01/22/22 05/05/23 History calcium 100 mg capsule 100 mg PO DAILY 05/05/23 05/05/23 History cholecalciferol (vitamin D3) 25 25 mcg PO DAILY 05/05/23 05/05/23 History mcg (1,000 unit) capsule (Vitamin D3) hydrocodone 5 mg-acetaminophen 325 1 tablet PO Q4H PRN pain #30 tabs 05/09/23 Rx mg tablet Patient hx anesthesia problems: none Family hx anesthesia problems: none Results Review: All pre-operative results and documents have been reviewed as part of the pre-operative evaluation. [facility] Past Medical History Medical History Adjustment disorder Anxiety Claustrophobia DVT (deep venous thrombosis) Surgical History Surgical History H/O adenoidectomy History of section Family History Family History Father COPD (chronic obstructive pulmonary disease) Sibling Asthma Mother Thyroid cancer Grandparent Heart disease Cancer Prostate carcinoma Borderline diabetes Social History Social History Smoking packs per day: 2 Smoking cigarettes per day: 40.0 Years smoked: 25 Smoking pack-years: 50.00 Smoking status: Former smoker Tobacco type: cigarettes Second hand tobacco smoke exposure: No Smoking end date: 04/09/18 Additional smoking assessment comments: VAPED FOR 3 YRS, QUIT DECEMBER 2019 Alcohol intake: former Substance use: former Substance use type: marijuana Other substance usage details: 7 YRS AGO LAST USE Living arrangements: with family Gender identity (if verbalized by the patient): Female Spiritual care concerns: No Anes - Eval Final PreProcedure Day of Procedure 05/09/23 10:45 Patient weight: obese Heart: regular rate and rhythm Lungs: decreased breath sounds Airway: Mallampati scale class II Neurological: alert and oriented Last oral intake: >/= 8 hours ASA classification: III Emergent: no Anesthetic plan: proceed Anesthesia type and monitoring: general ETT and standard monitoring Results Review: All pre-operative results and documents have been reviewed as part of the pre-operative evaluation. Informed Consent: The patient's anesthetic plan and its attendant risks and benefits were discussed with the patient/family/POA. Questions were solicited and answers provided to the satisfaction of the patient/family/POA.
[2023-05-09] MEDS: LACTATED RINGERS 1,000 ML 30 ML IV CONT ×2 (10:50→13:46)
[2023-05-09] MEDS: KETOROLAC 15 MG/ML VIAL (*BKC) IV PUSH (11:03)
[2023-05-09] MEDS: ceFAZolin 2 GM/D5W 50 ML 2 GM/50 ML BAG IVPB (12:08)
--- NOTE | 2023-05-09 13:34 | P.OP_ITS ---
Procedure Note - Detailed Date of Procedure 05/09/23 Pre-op Diagnosis Uterine Prolapse, Pelvic Pain, Irrg Bleeding Post-op Diagnosis Same Procedure Performed Robotic total vaginal hysterectomy bilateral salpingectomy with extensive lysis of adhesions Surgeon Anthony Carballo MD Anesthesia General Indications This 43-year-old fusion filled with multiple sections enlarged uterus pelvic adhesions uterine prolapse Findings Markedly enlarged uterus. The bladder was stuck to the superior portion of the uterus. Description of Procedure Patient was prepped draped in the normal sterile fashion placed in dorsal lithotomy position. Excellent general trach anesthesia weighted speculum placed posterior vagina. Anterior lip the cervix grasped with a single-tooth tenaculum. Uterus sounded to 10cm. Serial dilatation with fragmented dilators performed followed passes the 8. COLIN and the 3. Cold cup. Next 16 [place] catheter was placed in the bladder. The the remaining instruments removed gloves were changed. A supraumbilical incision made the Veress needle passed in the abdomen. Abdomen filled with CO2 gas [id number]. The 8mm trocar advanced in the abdomen. Downside visualized no injury seen. Patient placed in Trendelenburg and left and right lateral quadrant incisions made 8mm trocars advanced under direct visualization assuring no injury. The right upper quadrant incision made the 8mm trocar advanced under direct visualization assuring no injury the robot was docked. Attention was turned to the school guidance counselor. The left round ligament grasped, burned, cut. The bladder was markedly adherent to the uterus and about 30minutes of dissection were necessary to relieve the bladder from the overlying uterus. This was brought finally to the opposite round ligament which was clamped, burned, cut. Next the fallopian tube was skeletonized away from the left ovary and left attached to the uterus. In like fashion the right fallopian tube was removed from the ovary and left attached to its uterine origin. The left utero- ovarian ligament was skeletonized clamping burning cutting and bringing this to the previously cut round ligament. Conserving the right ovary the utero-ovarian ligaments clamped, burned, cut and brought to the level of previously cut round ligament. Cardinal broad ligaments on the left were then serially skeletonized clamping burning cutting ovary these down lateral edge until the uterine vessels could be seen on left these were large and tortuous in individually clamped, burned, cut. The right cardinal broad ligaments were skeletonized clamping burning cutting the hugging the uterus and cervix until the uterine vessels could be seen on the right these were individually clamped, burned, cut. A colpotomy incision was made the cervix uterus and tubes removed through the vagina. The vagina then closed with continuous running 0V lock from lateral edge to lateral edge back the midline. Irrigation undertaken until clear and a and raw surface area was sprinkled with Axis term. Blood loss was estimated 50cc for the entire procedure. The robot was undocked. The gas removed the abdomen. The incisions closed with 4 Monocryl and glue after the trocars removed. The instruments removed from the vagina and the patient awakened went to recovery in satisfactory condition. All sponge, needle, instrument counts were correct. There were no immediate complications noted Estimated Blood Loss 50 Drains No Packing No Pathology Yes Complications No immediate complications Condition Stable Disposition PACU
--- NOTE | 2023-05-09 15:15 | PM.DS ---
DS: Admitting Diagnosis Discharge Date 05/10/2023 Admitting Diagnosis Excessive bleeding/uterine prolapse/pelvic pain DS: Discharge Diagnosis Discharge Diagnosis (1) Excessive vaginal bleeding: Code(s): N93.9 - Abnormal uterine and vaginal bleeding, unspecified Status: Acute (2) Pelvic pain: Code(s): R10.2 - Pelvic and perineal pain Status: Acute (3) Uterine prolapse: Code(s): N81.4 - Uterovaginal prolapse, unspecified Status: Acute DS: Summary Hospital Course Reason for hospitalization: Patient was admitted on 05/09/2023 for robotic total vaginal hysterectomy bilateral salpingectomy Hospital Course: Patient underwent successful robotic vaginal hysterectomy and bilateral salpingectomy 1523. Her 24hour course was unremarkable. She remained afebrile. She was up ambulating eating regular diet voiding without difficulty and generally without complaints. Time Spent with Patient Time attestation: Total time spent providing and/or coordinating discharge services: Exam Const: General: cooperative, healthy appearing and comfortable Orientation/consciousness: oriented to person, oriented to place and oriented to time Resp: Effort & Inspection: normal respiratory effort Cardio: Rate: regular rate Rhythm: regular rhythm Heart sounds: S1 normal heart sound present and S2 normal heart sound present GI: Inspection: normal to inspection and incision (Wounds are clean dry and intact) DS: Data Data Completed and Pending Pending studies at discharge: Pending at discharge 05/09/23 13:20 Surgical [PTH] Routine Discharge Plan Discharge Patient Disposition: Home, Self-Care Stand Alone Forms: General Discharge Instructions Follow-up/Referrals: Anthony Echavarria MD [Physician] - Discharge Medications: New hydrocodone-acetaminophen 5-325 mg tablet 1 tablet PO Q4H PRN (Reason: pain) Qty: 30 0RF No Action sertraline 50 mg tablet 100 mg PO DAILY buspirone 15 mg tablet 1 tablet PO TID bupropion HCl [Wellbutrin XL] 150 mg Tablet Extended Release 24 Hr 150 mg PO QAM DHA 200 mg Capsule 200 mg PO DAILY calcium 100 mg Capsule 100 mg PO DAILY cholecalciferol (vitamin D3) [Vitamin D3] 25 mcg (1,000 unit) Capsule 25 mcg PO DAILY
[2023-05-09] MEDS: IBUPROFEN 600 MG TABLET PO (18:00)
[2023-05-09] MEDS: DEXTROSE 5%/LACTATED RINGERS 1,000 ML 125 ML IV CONT (18:00)
[2023-05-09] MEDS: HYDROcodone/acetaminophen (*CRX) 5-325 MG TABLET 1 TAB PO ×2 (18:00→20:55)
[2023-05-09] MEDS: SIMETHICONE 80 MG TAB.CHEW PO (18:00)
[2023-05-09] MEDS: DOCUSATE SODIUM 100 MG CAPSULE PO (18:00)
[2023-05-09] MEDS: ONDANSETRON INJ 4 MG/2 ML VIAL IV PUSH (18:00)
[2023-05-09] MEDS: busPIRone HCL 10 MG, busPIRone HCL 5 MG 15 MG PO (20:50)
[2023-05-10] MEDS: IBUPROFEN 600 MG TABLET PO (04:50)
[2023-05-10 04:52] VITALS: BP 123/78; PULSE 79; RESP 16; TEMP 37.1; O2SAT 96
[2023-05-10 05:25] LABS: Basophils Absolute Auto 0.1 K/mm3 (0.0-0.1); Basophils Percent Auto 0.6 % (0.2-1.2); Eosinophils Percent Auto 0.2 % (0-4.4); Hematocrit 32.8 % (37.0-47.0); Hemoglobin 10.6 g/dL (12.0-15.0); Immature Granulocyte Absolute 0.04 K/mm3 (0.00-0.031); Immature Granulocyte Percent A 0.4 % (0-0.5); Lymphocytes Absolute Auto 1.86 K/mm3 (0.9-3.2); Lymphocytes Percent Auto 16.7 % (18.3-44.2); Mean Corpuscular HGB Conc 32.3 g/dl (32-36); Mean Corpuscular Hemoglobin 28.3 pg (26-34); Mean Corpuscular Volume 87.5 fl (80-100); Mean Platelet Volume 11.2 fl (7.4-10.4); Monocytes Absolute Auto 0.7 K/mm3 (0.1-0.6); Monocytes Percent Auto 6.6 % (2.6-8.5); Neutrophils Absolute Auto 8.4 K/mm3 (1.3-6.7); Neutrophils Percent Auto 75.5 % (45.5-73.1); Platelet Count Result 202 k/mm3 (150-375); Red Blood Count 3.75 M/mm3 (4.2-5.4); Red Cell Distribution Width 13.6 % (11.5-14.5); White Blood Count 11.1 K/mm3 (4.5-10.0)
--- NOTE | 2023-05-10 07:45 | WPDANESPN ---
Anes - Prog Note Post-Op Date/Time: 05/10/23 07:45 Cardiovascular status: normal Respiratory status: normal Airway patency: baseline Mental status: baseline Post-Op hydration status: normal Vital Signs: Last Vital Signs Temp 37.1 C 05/10/23 04:52 Pulse 79 05/10/23 04:52 Resp 16 05/10/23 04:52 BP 123/78 05/10/23 04:52 Pulse Ox 96 05/10/23 04:52 O2 Del Method Room Air 05/10/23 04:52 O2 Flow Rate 8 05/09/23 14:00 Pain Score (VAS): 3 headache I/O: Intake & Output 05/09/23 05/09/23 05/10/23 15:59 23:59 07:59 Intake Total 550 100 480 Output Total 100 900 700 Balance 450 -800 -220 Laboratory Tests 05/10/23 04:44 05/10/23 04:44 WBC 11.1 H RBC 3.75 L Hgb 10.6 L Hct 32.8 L MCV 87.5 MCH 28.3 MCHC 32.3 RDW 13.6 Plt Count 202 MPV 11.2 H Immature Gran % (Auto) 0.4 Neut % (Auto) 75.5 H Lymph % (Auto) 16.7 L [place] % (Auto) 6.6 Eos % (Auto) 0.2 Baso % (Auto) 0.6 Lymph # (Auto) 1.86 [place] # (Auto) 0.7 H Eos # (Auto) 0.0 Baso # (Auto) 0.1 Abs Immat Gran (auto) 0.04 H Absolute Neuts (auto) 8.4 H Absolute Nucleated RBC 0.0 Nucleated RBC % 0.0 Post-procedural complaints: none Patient Feedback: Patient satisfied with anesthetic care.
[2023-05-10] MEDS: busPIRone HCL 10 MG, busPIRone HCL 5 MG 15 MG PO (09:04)
[2023-05-10] MEDS: ENOXAPARIN 40 MG/0.4 ML SYRINGE SUB-Q (09:05)
[2023-05-10] MEDS: DOCUSATE SODIUM 100 MG CAPSULE PO (09:05)
[2023-05-10 09:15] VITALS: BP 123/67; PULSE 82; RESP 16; TEMP 36.6; O2SAT 98
--- NOTE | 2023-05-10 09:34 | PM.GYNPNOP ---
EVENING OR NIGHT NURSE SUPERVISOR - A/P Assessment and plan (1) Excessive vaginal bleeding: Code(s): N93.9 - Abnormal uterine and vaginal bleeding, unspecified Status: Acute Assessment and Plan: A: POD#1, doing well. P: Home to f/u 2 weeks. (2) Pelvic pain: Code(s): R10.2 - Pelvic and perineal pain Status: Acute (3) Uterine prolapse: Code(s): N81.4 - Uterovaginal prolapse, unspecified Status: Acute Postoperative Procedures: Procedures Operation Date: 05/09/23 11:30 Actual Procedure Side Surgeon p Robotic Assisted Total Vaginal Hysterectomy with Bilateral Salpingectomy, Extensive Lysis of Adhesions Bilateral Anthony Carballo MD Time Spent With Patient Time: Total time spent is greater than 50% in coordination of care (as documented) at patient's floor/unit and/or counseling patient: Time with patient: less than 15 minutes EVENING OR NIGHT NURSE SUPERVISOR- PN:Subj Post-Op Subjective Date/time seen: 05/10/23 09:34 Interval history: Pain OK. Tolerating diet. Voiding. Would like to go home. Exam Narrative: AVSS I/O OK ABD soft, nontender. Incisions c/d/i. EXT nontender EVENING OR NIGHT NURSE SUPERVISOR - PN: Obj Data Vital Signs Vital Signs: Vital Signs - 24 hr 05/09/23 11:00 05/09/23 13:46 05/09/23 14:00 Temperature 36.5 C 36.6 C Pulse Rate 80 57 L 58 L Respiratory Rate 16 14 16 Blood Pressure 134/75 115/70 112/75 Pulse Oximetry 97 99 96 Oxygen Delivery Room Air Simple Face Mask Simple Face Mask Oxygen Flow Rate 8 8 05/09/23 14:15 05/09/23 14:30 05/09/23 14:45 Temperature Pulse Rate 73 70 68 Respiratory Rate 14 14 20 Blood Pressure 123/71 122/66 116/63 Pulse Oximetry 100 74 L 94 Oxygen Delivery Room Air Room Air Room Air Oxygen Flow Rate 05/09/23 15:00 05/09/23 15:12 05/09/23 19:30 Temperature 36.2 C L 36.7 C Pulse Rate 63 68 82 Respiratory Rate 16 16 16 Blood Pressure 119/65 115/58 L 120/74 Pulse Oximetry 98 99 95 Oxygen Delivery Room Air Oxygen Flow Rate 05/09/23 19:30 05/09/23 23:45 05/09/23 23:45 Temperature 36.7 C Pulse Rate 85 82 Respiratory Rate 18 16 Blood Pressure 133/74 Pulse Oximetry 96 95 Oxygen Delivery Room Air Room Air Oxygen Flow Rate 05/10/23 04:52 05/10/23 04:52 Temperature 37.1 C Pulse Rate 79 Respiratory Rate 16 Blood Pressure 123/78 Pulse Oximetry 96 Oxygen Delivery Room Air Oxygen Flow Rate Intake/Output Intake/Output: Intake & Output 05/07/23 05/08/23 05/09/23 05/10/23 23:59 23:59 23:59 23:59 Intake Total 650 480 Output Total 1000 700 Balance -350 -220 Meds/Results Medications: Active Medications Generic Name Dose Route Start Last Admin Trade Name Freq PRN Reason Stop Dose Admin Hydrocodone Bitart/Acetaminophen 1 tab 05/09/23 15:04 05/09/23 20:55 Hydrocodone/Acetaminophen (*Crx) 5-325 Mg Tablet PO 1 tab Q3H PRN Administration Pain Rated 5 or Less Hydrocodone Bitart/Acetaminophen 1 tab 05/09/23 15:04 Hydrocodone/Acetaminophen (*Crx) 10-325 Mg Tablet PO Q3H PRN Pain Rated 6 or Greater Buspirone HCl 10 mg/ Buspirone 15 mg 05/09/23 20:00 05/10/23 09:04 HCl 5 mg PO 15 mg Q12H TIAGO Administration Docusate Sodium 100 mg 05/09/23 17:00 05/10/23 09:05 Docusate Sodium 100 Mg Capsule PO 100 mg BID TIAGO Administration Enoxaparin Sodium 40 mg 05/10/23 09:00 05/10/23 09:05 Enoxaparin 40 Mg/0.4 Ml Syringe SUB-Q 40 mg DAILY TIAGO Administration Dextrose/Lactated Ringer's 1,000 mls @ 125 mls/hr 05/09/23 15:04 05/09/23 18:00 Dextrose 5%/Lactated Ringers IV CONT 125 mls/hr .Q8H TIAGO Administration Ibuprofen 600 mg 05/09/23 15:04 05/10/23 04:50 Ibuprofen 600 Mg Tablet PO 600 mg Q6H PRN Administration Cramping Ketorolac Tromethamine 30 mg 05/09/23 15:04 Ketorolac 30 Mg/Ml Vial (*Bkc) IV PUSH 05/14/23 15:03 Q6H PRN Pain Rated 4-6 Naloxone HCl 0.1 mg 05/09/23 15:04 Naloxone Hcl 0.4 Mg/Ml Vial IV PUS
--- NOTE | 2023-05-10 09:35 | P.DS_ITS ---
DS: Admitting Diagnosis Discharge Date 05/10/23 Admitting Diagnosis Vaginal bleeding, pelvic pain, pelvic prolapse DS: Discharge Diagnosis Discharge Diagnosis (1) Excessive vaginal bleeding: Code(s): N93.9 - Abnormal uterine and vaginal bleeding, unspecified Status: Acute (2) Pelvic pain: Code(s): R10.2 - Pelvic and perineal pain Status: Acute (3) Uterine prolapse: Code(s): N81.4 - Uterovaginal prolapse, unspecified Status: Acute DS: Summary Hospital Course Hospital Course: Admitted on the date of scheduled surgery. She did well and was able to go home on POD1. Time Spent with Patient Time attestation: Total time spent providing and/or coordinating discharge services: DS: Data Data Completed and Pending Pending studies at discharge: Pending at discharge 05/09/23 13:20 Surgical [PTH] Routine Labs on day of discharge: Labs from last 24 hours 05/10/23 04:44 WBC 11.1 H RBC 3.75 L Hgb 10.6 L Hct 32.8 L MCV 87.5 MCH 28.3 MCHC 32.3 RDW 13.6 Plt Count 202 MPV 11.2 H Immature Gran % (Auto) 0.4 Neut % (Auto) 75.5 H Lymph % (Auto) 16.7 L [place] % (Auto) 6.6 Eos % (Auto) 0.2 Baso % (Auto) 0.6 Lymph # (Auto) 1.86 [place] # (Auto) 0.7 H Eos # (Auto) 0.0 Baso # (Auto) 0.1 Abs Immat Gran (auto) 0.04 H Absolute Neuts (auto) 8.4 H Absolute Nucleated RBC 0.0 Nucleated RBC % 0.0 Discharge Plan Discharge Patient Disposition: Home, Self-Care Discharge Instructions: Call or return if temperature above 100.4? F, increased abdominal pain, increased vaginal bleeding or any new problems. Stand Alone Forms: General Discharge Instructions Follow-up/Referrals: Anthony Echavarria MD [Physician] - 2 Weeks Discharge Medications: New hydrocodone-acetaminophen 5-325 mg tablet 1 tablet PO Q4H PRN (Reason: pain) Qty: 30 0RF Continued sertraline 50 mg tablet 100 mg PO DAILY buspirone 15 mg tablet 1 tablet PO TID bupropion HCl [Wellbutrin XL] 150 mg Tablet Extended Release 24 Hr 150 mg PO QAM DHA 200 mg Capsule 200 mg PO DAILY calcium 100 mg Capsule 100 mg PO DAILY cholecalciferol (vitamin D3) [Vitamin D3] 25 mcg (1,000 unit) Capsule 25 mcg PO DAILY
== END 2023-05-10 12:05 | disposition home or self-care (01) ==
LOC: ANHSURGERY 09:35 → ANHOB2 15:06
PROVIDERS: Visit Provider Obstetrics & Gynecology
PROC: (CPT 58552; principal; 2023-05-09 11:30)
DX: N81.4 Uterovaginal prolapse, unspecified (principal); R10.2 Pelvic and perineal pain; N93.9 Abnormal uterine and vaginal bleeding, unspecified; N73.6 Female pelvic peritoneal adhesions (postinfective); N72 Inflammatory disease of cervix uteri; N83.8 Other noninflammatory disorders of ovary, fallopian tube and broad ligament; N94.10 Unspecified dyspareunia; F41.9 Anxiety disorder, unspecified; Z86.718 Personal history of other venous thrombosis and embolism; Z87.891 Personal history of nicotine dependence; E66.9 Obesity, unspecified; Z68.34 Body mass index [BMI] 34.0-34.9, adult
CPT/HCPCS: 58552; S2900; 36415; 85025; 88307; 99199; A9270; J0690; J1100; J1170; J1650; J1885; J2250; J2405; J2704; J3010; J7030; J7120; J7121